=== PATIENT | female | born 1945 | race Caucasian/White ===

== ENCOUNTER 2017-02-12 10:00 | Emergency (ER) | payer MEDICARE ==
[2017-02-12] MEDS ORDERED: MECLIZINE HCL 25 MG TABLET PO ONE (10:14)
--- NOTE | 2017-02-12 10:19 | ER Document Report ---
ED Dizziness/Weakness - General Stated Complaint: DIZZINESS Time Seen by Provider: 02/12/17 10:07 Mode of Arrival: Stretcher Information source: Patient - HPI Patient complains to provider of: Dizziness Onset: This morning Onset/Duration: Sudden Quality of pain: No pain Associated symptoms: None Exacerbated by: Change in position Baseline gait: Uses a cane Notes: Patient is a 71-year-old female brought to the emergency room from home by EMS for episode of dizziness, patient reports that when she woke up this morning got out of bed she felt lightheaded, causing her to fall back onto the bed, she denies a headache at the time but has a headache now, she denies any pain anywhere, no injury from her fall as she landed back on her bed, patient denies any chest pain or shortness of breath, no vision changes, no nausea, vomiting or diarrhea, no dysuria or hematuria, patient denies any change in routine or medications recently, she reports eating well and drinking well over the last few days, has not been outside of her house for long periods of time in the heat , patient reports a history of vertigo, was previously taking meclizine as prescribed by her physician for this, however has not required this medication and at least the past year, did not take any this morning either Past Medical History - General Information source: Patient - Social History Smoking Status: Never Smoker Frequency of alcohol use: None Drug Abuse: None Family History: Reviewed & Not Pertinent Review of Systems - Review of Systems Constitutional: No symptoms reported EENT: No symptoms reported Cardiovascular: See HPI Respiratory: No symptoms reported Gastrointestinal: No symptoms reported Genitourinary: No symptoms reported Female Genitourinary: No symptoms reported Musculoskeletal: No symptoms reported Skin: No symptoms reported Hematologic/Lymphatic: No symptoms reported Neurological/Psychological: No symptoms reported -: Yes All other systems reviewed and negative Physical Exam - Vital signs Vitals: Resp 18 02/12/17 10:05 Interpretation: Normal - General General appearance: Appears well, Alert - HEENT Head: Normocephalic, Atraumatic Eyes: Normal Pupils: PERRL - Respiratory Respiratory status: No respiratory distress Chest status: Nontender Breath sounds: Normal Chest palpation: Normal - Cardiovascular Rhythm: Regular Heart sounds: Normal auscultation Murmur: No - Abdominal Inspection: Normal Distension: No distension Bowel sounds: Normal Tenderness: Nontender Organomegaly: No organomegaly - Back Back: Normal, Nontender - Extremities General upper extremity: Normal inspection, Nontender, Normal color, Normal ROM , Normal temperature General lower extremity: Nontender, Edema, Normal color, Normal ROM, Normal temperature. No: Monica's sign - Neurological Neuro grossly intact: Yes Cognition: Normal Orientation: AAOx4 [place] Coma Scale Eye Opening: Spontaneous [place] Coma Scale Verbal: Oriented [place] Coma Scale Motor: Obeys Commands [place] Coma Scale Total: 15 Speech: Normal Motor strength normal: LUE, RUE, LLE, RLE Sensory: Normal - Psychological Associated symptoms: Normal affect, Normal mood - Skin Skin Temperature: Warm Skin Moisture: Dry Skin Color: Normal Course - Re-evaluation Re-evalutation: 02/12/17 12:47 Patient was able to ambulate with nursing staff and reports feeling much better , dizziness is resolved, lab and imaging findings were discussed with patient at bedside which are unremarkable, symptoms are consistent with vertigo, she will be given a prescription for meclizine, advised to follow-up with her primary care provider as well as neurology, patient acknowledges understanding and agreement with this plan - Vital Signs Vital signs: Temp Pulse Resp BP Pulse Ox 98.2 F 17 109/77 99 02/12/17 10:18 02/12/17 11:00 02/12/17 10:18 02/12/17 11:15 - Laboratory Result Diagrams: 02/12/17 11:05 02/12/17 11:05 Laboratory results interpreted by me: 02/12/17 02/12/17 11:05 11:10 BUN 34 H Est GFR ( Amer) 51 L Est GFR (Non-Af Amer) 42 L Urine Ascorbic Acid 40 H - Diagnostic Test Radiology reviewed: Image reviewed, Reports reviewed - EKG Interpretation by Me EKG shows normal: Sinus rhythm Rate: Normal Rhythm: NSR, PVC's [place]/QRS: LAHB/LAFB Discharge - Discharge Clinical Impression: Vertigo Condition: Stable Disposition: HOME, SELF-CARE Instructions: Meclizine ([facility]), Vertigo ([facility]), Neurologist Additional Instructions: Follow up with your primary care provider in one to 2 days. Return to the emergency room immediately if symptoms worsen or any additional concerns. Prescriptions: Meclizine HCl [Antivert 25 mg Tablet] 25 mg PO TID #20 tablet
--- NOTE | 2017-02-12 10:53 | RADIOLOGY REPORT (SQ) ---
EXAM DESCRIPTION: CHEST SINGLE VIEW COMPLETED DATE/TIME: 02/12/2017 10:34 am REASON FOR STUDY: dizziness COMPARISON: None. EXAM PARAMETERS: NUMBER OF VIEWS: One view. TECHNIQUE: Single frontal radiographic view of the chest acquired. RADIATION DOSE: NA LIMITATIONS: None. FINDINGS: LUNGS AND PLEURA: No opacities, masses or pneumothorax. No pleural effusion. MEDIASTINUM AND HILAR STRUCTURES: No masses. Contour normal. HEART AND VASCULAR STRUCTURES: Heart normal in size. Normal vasculature. BONES: No acute findings. HARDWARE: None in the chest. OTHER: No other significant finding. IMPRESSION: NO ACUTE RADIOGRAPHIC FINDING IN THE CHEST. TECHNICAL DOCUMENTATION: JOB ID: [id number]
[2017-02-12 11:32] LABS: APPEARANCE,URINE SLIGHTLY-CLOUDY; BILIRUBIN,URINE NEGATIVE (NEGATIVE); GLUCOSE, URINE NEGATIVE (NEGATIVE); KETONES,URINE NEGATIVE (NEGATIVE); LEUKOCYTE ESTERASE,URINE NEGATIVE (NEGATIVE); NITRITE,URINE NEGATIVE (NEGATIVE); PROTEIN,URINE NEGATIVE (NEGATIVE); URINE SPECIFIC GRAVITY 1.016; UROBILINOGEN,URINE NEGATIVE mg/dL (<2.0)
[2017-02-12 11:36] LABS: ALANINE AMINOTRANSFERASE 25 U/L (9-52); ALKALINE PHOSPHATASE 109 U/L (38-126); ANION GAP 10 (5-19); ASPARTATE AMINO TRANSFERASE 19 U/L (14-36); BILIRUBIN,DIRECT 0.3 mg/dL (0.0-0.4); BILIRUBIN,TOTAL 0.6 mg/dL (0.2-1.3); BLOOD UREA NITROGEN 34 mg/dL (7-20); CALCIUM 9.8 mg/dL (8.4-10.2); CARBON DIOXIDE 25 mmol/L (22-30); CHLORIDE 105 mmol/L (98-107); CREATINE KINASE 49 U/L (30-135); CREATININE RESULT 1.25 mg/dL (0.52-1.25); GLUCOSE 96 mg/dL (75-110); POTASSIUM 4.8 mmol/L (3.6-5.0); SODIUM 140.3 mmol/L (137-145); TOTAL PROTEIN 7.3 g/dL (6.3-8.2)
[2017-02-12 11:57] LABS: CREATINE KINASE MB 0.69 ng/mL (<4.55)
[2017-02-12 11:59] LABS: TROPONIN I < 0.012 ng/mL
[2017-02-12 12:03] LABS: ABSOLUTE EOSINOPHILS # (AUTO) 0.2 10^3/uL (0.0-0.6); ABSOLUTE LYMPHOCYTES (AUTO) 1.9 10^3/uL (0.5-4.7); ABSOLUTE MONOCYTES (AUTO) 0.6 10^3/uL (0.1-1.4); ABSOLUTE NEUT (AUTO) 4.7 10^3/uL (1.7-8.2); BASOPHILS % (AUTO) 0.6 % (0-2); EOSINOPHILS % (AUTO) 3.4 % (0-6); HEMATOCRIT 36.4 % (36.0-47.0); HEMOGLOBIN 12.2 g/dL (12.0-15.5); HGB HCT DIFFERENCE 0.2; LYMPHOCYTES % (AUTO) 25.5 % (13-45); MEAN CORPUSCULAR HEMOGLOBIN 31.4 pg (27.0-33.4); MEAN CORPUSCULAR HGB CONC 33.4 g/dL (32.0-36.0); MEAN CORPUSCULAR VOLUME 94 fl (80-97); MONOCYTES % (AUTO) 7.8 % (3-13); RED BLOOD COUNT 3.87 10^6/uL (3.72-5.28); RED CELL DISTRIBUTION WIDTH 13.3 % (11.5-14.0); SEGMENTED NEUTROPHILS % (AUTO) 62.7 % (42-78); WHITE BLOOD COUNT 7.4 10^3/uL (4.0-10.5)
[2017-02-12 13:55] VITALS: BP 118/58
--- NOTE | 2017-02-12 16:09 | EKG REPORT ---
SEVERITY:- ABNORMAL ECG - SINUS RHYTHM MULTIPLE VENTRICULAR PREMATURE COMPLEXES LAD, CONSIDER LAFB OR INFERIOR INFARCT BORDERLINE R WAVE PROGRESSION, ANTERIOR LEADS : Confirmed by: Stephanie Rice MD 12-Feb-2017 16:08:56
== END 2017-02-12 13:55 | disposition home or self-care (01) ==
LOC: ER 10:00
DX: R42 Dizziness and giddiness (principal); R51 Headache; I49.3 Ventricular premature depolarization; I44.4 Left anterior fascicular block
CPT/HCPCS: 93005; 99284; 36415; 87086; 82553; 82550; 85025; 87088; 80053; 81001; 84484; 87186; 83880; 71010; 93010; A9270

== ENCOUNTER 2018-11-18 16:35 | Emergency (ER) | payer MEDICARE ==
[2018-11-18 18:57] LABS: ABSOLUTE EOSINOPHILS # (AUTO) 0.3 10^3/uL (0.0-0.6); ABSOLUTE LYMPHOCYTES (AUTO) 4.2 10^3/uL (0.5-4.7); ABSOLUTE MONOCYTES (AUTO) 0.8 10^3/uL (0.1-1.4); ABSOLUTE NEUT (AUTO) 4.8 10^3/uL (1.7-8.2); BASOPHILS % (AUTO) 0.3 % (0-2); EOSINOPHILS % (AUTO) 2.9 % (0-6); HEMATOCRIT 35.4 % (36.0-47.0); HEMOGLOBIN 11.5 g/dL (12.0-15.5); MEAN CORPUSCULAR HEMOGLOBIN 30.4 pg (27.0-33.4); MEAN CORPUSCULAR HGB CONC 32.6 g/dL (32.0-36.0); MEAN CORPUSCULAR VOLUME 93 fl (80-97); MONOCYTES % (AUTO) 7.7 % (3-13); PLATELET COUNT 248 10^3/uL (150-450); RED BLOOD COUNT 3.79 10^6/uL (3.72-5.28); RED CELL DISTRIBUTION WIDTH 13.4 % (11.5-14.0); SEGMENTED NEUTROPHILS % (AUTO) 47.1 % (42-78); TOTAL CELLS COUNTED % (AUTO) 100 %; WHITE BLOOD COUNT 10.1 10^3/uL (4.0-10.5)
[2018-11-18 19:15] LABS: INTERNATIONAL RATION (INR) 0.97; PROTHROMBIN TIME 13.4 SEC (11.4-15.4)
[2018-11-18 19:20] LABS: ALANINE AMINOTRANSFERASE 19 U/L (9-52); ALBUMIN 3.9 g/dL (3.5-5.0); ALKALINE PHOSPHATASE 97 U/L (38-126); ANION GAP 16 (5-19); ASPARTATE AMINO TRANSFERASE 22 U/L (14-36); BILIRUBIN,DIRECT 0.3 mg/dL (0.0-0.4); BILIRUBIN,TOTAL 0.6 mg/dL (0.2-1.3); BLOOD UREA NITROGEN 30 mg/dL (7-20); CALCIUM 9.9 mg/dL (8.4-10.2); CARBON DIOXIDE 19 mmol/L (22-30); CHLORIDE 107 mmol/L (98-107); CREATINE KINASE 78 U/L (30-135); GLUCOSE 123 mg/dL (75-110); POTASSIUM 4.3 mmol/L (3.6-5.0); SODIUM 141.9 mmol/L (137-145); TOTAL PROTEIN 7.2 g/dL (6.3-8.2)
[2018-11-18 19:31] LABS: CREATINE KINASE MB 0.82 ng/mL (<4.55)
[2018-11-18 19:44] LABS: TROPONIN I < 0.012 ng/mL
[2018-11-18 21:05] LABS: APPEARANCE,URINE TURBID; BILIRUBIN,URINE NEGATIVE (NEGATIVE); COLOR,URINE YELLOW; GLUCOSE, URINE NEGATIVE (NEGATIVE); KETONES,URINE NEGATIVE (NEGATIVE); LEUKOCYTE ESTERASE,URINE MODERATE (NEGATIVE); NITRITE,URINE NEGATIVE (NEGATIVE); PROTEIN,URINE 30 mg/dL (NEGATIVE); URINE SPECIFIC GRAVITY 1.011; UROBILINOGEN,URINE NEGATIVE mg/dL (<2.0)
[2018-11-18] MEDS ORDERED: NITROFURANTOIN MONOHYD/M-CRYST 100 MG CAPSULE PO ONE (21:36)
--- NOTE | 2018-11-18 21:41 | ER Document Report ---
ED General - General Chief Complaint: Near Syncope Stated Complaint: SYNCOPE Time Seen by Provider: 11/18/18 19:17 TRAVEL OUTSIDE OF THE [place] IN LAST 30 DAYS: No - HPI Notes: Patient is a 73-year-old female presents to the emergency department for evaluation. She was at the [facility] and had a syncopal episode. She just sort of slumped down onto the floor. She denies hitting her head or losing cons ciousness. Of note she had not eaten anything yet today. She states that she often does not eat very much during the day as she has had a dumping syndrome since her cholecystectomy. Otherwise she is been staying hydrated. She was recently treated for urinary tract infection. Taking medications as prescribed. - Related Data Allergies/Adverse Reactions: No Known Allergies Allergy (Verified 11/18/18 20:15) Past Medical History - General Information source: Patient, Relative - Son and [id number] - Social History Smoking Status: Never Smoker Chew tobacco use (# tins/day): No Frequency of alcohol use: None Drug Abuse: None Family History: Reviewed & Not Pertinent Patient has suicidal ideation: No Patient has homicidal ideation: No - Past Medical History Cardiac Medical History: Reports: Hx Hypercholesterolemia, Hx Hypertension Renal/ Medical History: Reports: Other - Overactive bladder. Denies: Hx Peritoneal Dialysis GI Medical History: Reports: Hx Gastroesophageal Reflux Disease Review of Systems - Review of Systems Constitutional: No symptoms reported EENT: No symptoms reported Cardiovascular: See HPI Respiratory: No symptoms reported Gastrointestinal: See HPI Genitourinary: See HPI Musculoskeletal: No symptoms reported Skin: No symptoms reported Neurological/Psychological: No symptoms reported Physical Exam - Vital signs Vitals: Resp Pulse Ox 11 L 97 11/18/18 17:20 11/18/18 17:20 - Notes Notes: Vital signs reviewed, please refer to chart. Patient is normocephalic, atraumatic. Pupils equal round, reactive to light. Neck is supple without meningismus. Heart is regular rate and rhythm. Lungs are clear to auscultation bilaterally. Abdomen is soft, nontender, normoactive bowel sounds throughout. Extremities without cyanosis, clubbing. Lymphedema bilateral lower extremities. Peripheral pulses are equal. Skin is warm and dry. Patient is awake, alert, neurological exam is nonfocal. Course - Re-evaluation Re-evalutation: 11/18/18 21:40 6 presents to the emergency department for evaluation after a near syncopal episode. Laboratory investigations were largely unremarkable. Her creatinine is at her baseline. My suspicion is that it was in part because she only eats once a day. She had not eaten anything as of yet. She does seem to have a urinary tract infection. We will go ahead and treat her for that with Macrobid. She is given her first dose here. She actually is an appointment with her d amada tomorrow. It has been decided, with her family, that she will not be living alone anymore. Patient's son states that he will also be driving for her. She is to follow-up with her doctor tomorrow morning. We will write her prescription for Macrobid, return to the ED with worsening or new concerning symptoms of any sort. 11/18/18 21:41 - Vital Signs Vital signs: Temp Pulse Resp BP Pulse Ox 97.1 F 12 127/57 H 98 11/18/18 17:23 11/18/18 21:01 11/18/18 21:01 11/18/18 21:01 - Laboratory Result Diagrams: 11/18/18 16:12 11/18/18 16:12 Laboratory results interpreted by me: 11/18/18 11/18/18 11/18/18 16:12 16:12 20:30 Hgb 11.5 L Hct 35.4 L Carbon Dioxide 19 L BUN 30 H Creatinine 1.54 H Est GFR ( Amer) 40 L Est GFR (Non-Af Amer) 33 L Glucose 123 H Urine Protein 30 H Urine Blood MODERATE H Ur Leukocyte Esterase MODERATE H Discharge - Discharge Clinical Impression: Syncope, Urinary tract infection Condition: Stable Disposition: HOME, SELF-CARE Instructions: Nitrofurantoin ([facility]), Syncopal Episode ([facility]), Urinary Tract Infection ([facility]) Additional Instructions: Follow-up with your doctor as scheduled tomorrow. Take the antibiotic as prescribed, starting tomorrow morning. Return to the emergency department with worsening or new concerning symptoms of any sort. Prescriptions: Nitrofurantoin Macrocrystal [Macrodantin] 100 mg PO BID #13 capsule
[2018-11-18 21:57] VITALS: BP 125/65
--- NOTE | 2018-11-18 23:01 | EKG REPORT ---
SEVERITY:- ABNORMAL ECG - SINUS RHYTHM INFERIOR INFARCT, OLD BORDERLINE R WAVE PROGRESSION, ANTERIOR LEADS : Confirmed by: Campbell Heller 18-Nov-2018 23:00:07
== END 2018-11-18 21:50 | disposition home or self-care (01) ==
LOC: ER 16:35
DX: R55 Syncope and collapse (principal); N39.0 Urinary tract infection, site not specified; K91.1 Postgastric surgery syndromes; Z79.899 Other long term (current) drug therapy; I10 Essential (primary) hypertension
CPT/HCPCS: 93005; 99284; 36415; 82553; 82550; 85025; 85610; 80053; 81001; 84484; 93010; A9270; J8499